=== PATIENT | female | born 1985 | race Caucasian/White ===

== ENCOUNTER 2019-01-19 23:00 | Emergency (ER) | payer MEDICAID ==
[~2019-01-19] VITALS: Ht 152.4 cm; Wt 75.0 kg
[2019-01-19] MEDS ORDERED: SODIUM CHLORIDE 0.9% 1,000 ML IV ONE (23:33)
[2019-01-20 00:29] LABS: BASOPHILS % 0.2 % (0.0-2.0); EOSINOPHILS % 0.1 % (0.0-5.0); HEMATOCRIT. 39.1 % (36.0-48.0); HEMOGLOBIN. 13.5 g/dL (12.0-16.0); LYMPHOCYTES % 8.3 % (20.0-50.0); MEAN CORPUSCULAR HEMOGLOBIN 29.3 pg (28.0-32.0); MEAN CORPUSCULAR VOLUME 85.2 fL (81.0-99.0); MEAN PLATELET VOLUME 7.6 fl (7.4-10.4); MONOCYTES % 3.8 % (2.0-8.0); NEUTROPHILS % 87.6 % (40.0-76.0); PLATELET 306 x1000/uL (130-400); RED BLOOD CELL COUNT 4.59 mill/uL (4.2-5.4); RED CELL DISTRIBUTION WIDTH 13.7 % (11.6-14.6)
[2019-01-20 00:35] LABS: CHLORIDE 104 mEq/L (98-107)
[2019-01-20 01:00] LABS: B-HCG QUANTITATIVE 80674 mIU/mL (<3)
[2019-01-20 02:00] VITALS: BP 130/82
== END 2019-01-20 02:28 | disposition home or self-care (01) ==
LOC: ER 23:00
DX: O20.0 Threatened abortion (principal); O23.41 Unspecified infection of urinary tract in pregnancy, first trimester; O99.331 Smoking (tobacco) complicating pregnancy, first trimester; O26.891 Other specified pregnancy related conditions, first trimester; K59.00 Constipation, unspecified; Z3A.11 11 weeks gestation of pregnancy
CPT/HCPCS: 36415; 76801; 80053; 84702; 85025; 86850; 86900; 86901; 99284; J7030

== ENCOUNTER 2019-02-16 20:19 | Emergency (ER) | payer MEDICAID ==
[~2019-02-16] VITALS: Ht 152.4 cm; Wt 75.0 kg
[2019-02-16] MEDS ORDERED: ACETAMINOPHEN 325MG TABLET PO PRN (22:45)
[2019-02-16] MEDS ORDERED: ONDANSETRON 4MG ODT PO ONE (22:45)
[2019-02-16 23:25] LABS: CHLORIDE 104 mEq/L (98-107)
[2019-02-16 23:27] LABS: CLARITY URINE CLOUDY (CLEAR); COLOR URINE YELLOW (YELLOW); KETONES URINE 2+ (NEGATIVE); LEUKOCYTE ESTERASE URINE TRACE (NEGATIVE); NITRITE URINE NEGATIVE (NEGATIVE); OCCULT BLOOD URINE NEGATIVE (NEGATIVE); PH URINE 7.5 (4.5-8.0); PROTEIN URINE NEGATIVE (NEGATIVE); SPECIFIC GRAVITY URINE 1.023 (1.005-1.030); UROBILINOGEN URINE 0.2 E.U./dL (0.2-1.0)
[2019-02-16 23:33] LABS: BASOPHILS % 0.4 % (0.0-2.0); EOSINOPHILS % 1.1 % (0.0-5.0); HEMATOCRIT. 35.7 % (36.0-48.0); HEMOGLOBIN. 12.4 g/dL (12.0-16.0); LYMPHOCYTES % 29.8 % (20.0-50.0); MEAN CORPUSCULAR HEMOGLOBIN 29.4 pg (28.0-32.0); MEAN PLATELET VOLUME 7.5 fl (7.4-10.4); MONOCYTES % 8.6 % (2.0-8.0); NEUTROPHILS % 60.1 % (40.0-76.0); PLATELET 291 x1000/uL (130-400); RED CELL DISTRIBUTION WIDTH 13.7 % (11.6-14.6)
[2019-02-16 23:49] LABS: B-HCG QUANTITATIVE 49329 mIU/mL (<3)
[2019-02-17 02:16] VITALS: BP 133/88
== END 2019-02-17 02:18 | disposition home or self-care (01) ==
LOC: ER 20:19
DX: O26.892 Other specified pregnancy related conditions, second trimester (principal); O23.42 Unspecified infection of urinary tract in pregnancy, second trimester; O10.012 Pre-existing essential hypertension complicating pregnancy, second trimester; R51 Headache; Z3A.15 15 weeks gestation of pregnancy
CPT/HCPCS: 36415; 76805; 76817; 80053; 81003; 81025; 84702; 85025; 99284; Q0162

== ENCOUNTER 2019-04-15 07:36 | Emergency (ER) | payer MEDICAID ==
[~2019-04-15] VITALS: Ht 152.4 cm; Wt 72.9 kg
[2019-04-15] MEDS ORDERED: ONDANSETRON 4MG ODT PO ONE (09:15)
[2019-04-15 09:33] LABS: CLARITY URINE CLEAR (CLEAR); COLOR URINE YELLOW (YELLOW); KETONES URINE NEGATIVE (NEGATIVE); LEUKOCYTE ESTERASE URINE NEGATIVE (NEGATIVE); NITRITE URINE NEGATIVE (NEGATIVE); OCCULT BLOOD URINE NEGATIVE (NEGATIVE); PH URINE >=9.0 (4.5-8.0); PROTEIN URINE NEGATIVE (NEGATIVE)
[2019-04-15 09:38] LABS: BASOPHILS % 0.4 % (0.0-2.0); HEMATOCRIT. 32.6 % (36.0-48.0); HEMOGLOBIN. 11.2 g/dL (12.0-16.0); LYMPHOCYTES % 10.3 % (20.0-50.0); MEAN CORPUSCULAR HEMOGLOBIN 29.7 pg (28.0-32.0); MEAN CORPUSCULAR VOLUME 86.7 fL (81.0-99.0); MEAN PLATELET VOLUME 7.6 fl (7.4-10.4); MONOCYTES % 8.9 % (2.0-8.0); NEUTROPHILS % 79.4 % (40.0-76.0); PLATELET 277 x1000/uL (130-400); RED BLOOD CELL COUNT 3.76 mill/uL (4.2-5.4); RED CELL DISTRIBUTION WIDTH 14.2 % (11.6-14.6)
[2019-04-15 09:43] LABS: CHLORIDE 107 mEq/L (98-107)
[2019-04-15 10:11] LABS: B-HCG QUANTITATIVE 12208 mIU/mL (<3)
[2019-04-15 11:22] VITALS: BP 117/77
== END 2019-04-15 13:23 | disposition left against medical advice (07) ==
LOC: ER 07:36
DX: R11.2 Nausea with vomiting, unspecified (principal); R42 Dizziness and giddiness; R05 Cough
CPT/HCPCS: 36415; 80053; 81003; 81025; 83690; 84702; 85025; 87804; 93005; 99284; Q0162

== ENCOUNTER 2019-04-17 06:47 | Emergency (ER) | payer MEDICAID ==
[~2019-04-17] VITALS: Ht 152.4 cm; Wt 72.8 kg
[2019-04-17] MEDS ORDERED: SODIUM CHLORIDE 0.9% 1,000 ML IV ONE (07:46)
[2019-04-17] MEDS ORDERED: ONDANSETRON HCL 4MG/2ML INJ IV STA (07:46)
[2019-04-17] MEDS ORDERED: ACETAMINOPHEN 325MG TABLET PO ONE (08:00)
[2019-04-17 08:25] LABS: BASOPHILS % 0.3 % (0.0-2.0); EOSINOPHILS % 0.5 % (0.0-5.0); HEMATOCRIT. 30.8 % (36.0-48.0); HEMOGLOBIN. 10.7 g/dL (12.0-16.0); LYMPHOCYTES % 17.5 % (20.0-50.0); MEAN CORPUSCULAR VOLUME 86.5 fL (81.0-99.0); MEAN PLATELET VOLUME 7.8 fl (7.4-10.4); MONOCYTES % 8.6 % (2.0-8.0); NEUTROPHILS % 73.1 % (40.0-76.0); PLATELET 252 x1000/uL (130-400); RED BLOOD CELL COUNT 3.56 mill/uL (4.2-5.4); RED CELL DISTRIBUTION WIDTH 14.5 % (11.6-14.6)
[2019-04-17 08:35] LABS: CHLORIDE 108 mEq/L (98-107)
[2019-04-17 08:41] LABS: CLARITY URINE CLOUDY (CLEAR); COLOR URINE YELLOW (YELLOW); KETONES URINE NEGATIVE (NEGATIVE); LEUKOCYTE ESTERASE URINE 1+ (NEGATIVE); NITRITE URINE NEGATIVE (NEGATIVE); OCCULT BLOOD URINE NEGATIVE (NEGATIVE); PROTEIN URINE NEGATIVE (NEGATIVE); SPECIFIC GRAVITY URINE 1.023 (1.005-1.030)
[2019-04-17 10:53] VITALS: BP 114/78
== END 2019-04-17 12:24 | disposition home or self-care (01) ==
LOC: ER 06:47
DX: O26.892 Other specified pregnancy related conditions, second trimester (principal); R10.9 Unspecified abdominal pain; O99.512 Diseases of the respiratory system complicating pregnancy, second trimester; O21.9 Vomiting of pregnancy, unspecified; I10 Essential (primary) hypertension; Z3A.23 23 weeks gestation of pregnancy
CPT/HCPCS: 36415; 76805; 80053; 81003; 85025; 96374; 99284; J2405; J7030

== ENCOUNTER 2021-05-11 11:09 | Emergency (ER) | payer MEDICAID ==
[~2021-05-11] VITALS: Ht 165.1 cm; Wt 65.0 kg
[2021-05-11 13:30] LABS: HEMATOCRIT. 39.3 % (36.0-48.0); HEMOGLOBIN. 13.3 g/dL (12.0-16.0); MEAN CORPUSCULAR HEMOGLOBIN 29.4 pg (28.0-32.0); MEAN CORPUSCULAR VOLUME 86.9 fL (81.0-99.0); MEAN PLATELET VOLUME 7.4 fl (7.4-10.4); PLATELET 318 x1000/uL (130-400); RED BLOOD CELL COUNT 4.52 mill/uL (4.2-5.4); RED CELL DISTRIBUTION WIDTH 13.9 % (11.6-14.6)
[2021-05-11 14:46] VITALS: BP 138/76
[2021-05-11 14:47] LABS: PLATELET ESTIMATE NORMAL
[2021-05-11] MEDS ORDERED: AMOX-424 MT (17:59)
[2021-05-11] MEDS ORDERED: OXYMETAZOLINE HCL NASAL SPRAY 15ML BOTHNSTRLS SCH (21:00)
== END 2021-05-11 14:47 | disposition home or self-care (01) ==
LOC: ER 11:09
DX: R04.0 Epistaxis (principal); I10 Essential (primary) hypertension
CPT/HCPCS: 36415; 85025; 99283